=== PATIENT | male | born 1955 | race Caucasian/White ===

== ENCOUNTER → 2023-08-04 13:58 | Outpatient (REF) | payer MEDICARE, BC, SELFPAY ==
[2023-08-04 15:38] LABS: PSA, Total - Diagnostic 2.36 ng/ml (0.0-4.0)
== END ==
LOC: REG 13:58
PROVIDERS: ATTENDING PHYSICIAN Urology; FAMILY PHYSICIAN Family Medicine
DX: C61 Malignant neoplasm of prostate (principal)
CPT/HCPCS: 36415; 84153

== ENCOUNTER → 2024-01-18 07:01 | Outpatient (REF) | payer MEDICARE, BC, SELFPAY ==
[2024-01-18 09:37] LABS: PSA, Total - Diagnostic 2.69 ng/ml (0.0-4.0)
== END ==
LOC: REG 07:01
PROVIDERS: ATTENDING PHYSICIAN Physician Assistant; FAMILY PHYSICIAN Family Medicine
DX: C61 Malignant neoplasm of prostate (principal)
CPT/HCPCS: 36415; 84153

== ENCOUNTER → 2024-07-20 07:30 | Outpatient (REF) | payer MEDICARE, BC, SELFPAY ==
[2024-07-20 09:12] LABS: PSA, Total - Diagnostic 2.67 ng/ml (0.0-4.0)
== END ==
LOC: REG 07:30
PROVIDERS: ATTENDING PHYSICIAN Urology; FAMILY PHYSICIAN Family Medicine
DX: C61 Malignant neoplasm of prostate (principal)
CPT/HCPCS: 36415; 84153

== ENCOUNTER → 2024-07-23 09:43 | Outpatient (REF) | payer MEDICARE, BC, SELFPAY ==
[2024-07-23 11:41] LABS: % Basophils 0.6 % (0-2); % Eosinophils 3.1 % (0-6); % Immature Granulocytes 0.2 % (0-0.5); % Lymphocytes 37.7 % (20.5-51.1); % Monocytes 13.7 % (1.7-9.3); % Neutrophils 44.7 % (42.2-75.2); Absolute Eosinophils 0.2 10^3/uL (0-0.7); Absolute Lymphocytes 1.9 10^3/uL (1.2-3.4); Absolute Monocytes 0.7 10^3/uL (0.1-0.6); Absolute Neutrophils 2.3 10^3/uL (1.4-6.5); Hematocrit 43.6 % (39.0-52.0); Hemoglobin 14.6 g/dL (13.0-18.0); Mean Corp Hgb Conc. 33.5 g/dL (33.0-37.0); Mean Corpuscular Hgb 31.7 pg (27.0-31.0); Mean Corpuscular Volume 94.8 fL (80.0-94.0); Mean Platelet Volume 10.3 fL (7.4-10.4); Nucleated Red Blood Cells % 0 % (-); Platelet Count 173 10^3/uL (130-400); Red Cell Dist. Width 14.3 % (11.5-14.5); White Blood Cell Count 5.1 10^3/uL (4.8-10.8)
[2024-07-23 14:03] LABS: ALT (SGPT) 24 U/L (0-50); AST (SGOT) 20 U/L (17-59); Albumin 4.5 g/dl (3.5-5.0); Alkaline Phosphatase 56 U/L (38-126); Blood Urea Nitrogen 21 mg/dl (9-20); Calcium 9.5 mg/dl (8.4-10.2); Carbon Dioxide 24 mmol/L (22-30); Chloride 107 mmol/L (98-107); Glucose 108 mg/dl (70-99); HDL Cholesterol 55 mg/dl; LDL Cholesterol, Calculated 70 mg/dl; Sodium 142 mmol/L (135-145); Total Bilirubin 0.5 mg/dl (0.2-1.3); Total Cholesterol 148 mg/dl (50-199); Total Protein 6.9 g/dl (6.3-8.2); Triglyceride 118 mg/dl (10-149); Very Low Density Lipoprotein 23 mg/dl (0-30); eGFR > 60.00
== END ==
LOC: HWLAB 09:43
PROVIDERS: ATTENDING PHYSICIAN Family Medicine
DX: I10 Essential (primary) hypertension (principal); G47.33 Obstructive sleep apnea (adult) (pediatric); K21.9 Gastro-esophageal reflux disease without esophagitis; R03.0 Elevated blood-pressure reading, without diagnosis of hypertension; C61 Malignant neoplasm of prostate; E66.09 Other obesity due to excess calories; Z00.00 Encounter for general adult medical examination without abnormal findings
CPT/HCPCS: 36415; 80053; 80061; 85025

== ENCOUNTER 2024-12-23 23:25 | Emergency (ER) | payer MEDICARE, BC, SELFPAY ==
[2024-12-23 23:29] VITALS: BP 220/106
[2024-12-23 23:52] VITALS: BMI 34.6
[2024-12-23 23:54] VITALS: BP 196/106
[2024-12-24] MEDS: NSS 500 IV (00:13)
--- NOTE | 2024-12-24 00:17 | ED.GENMED ---
History of Present Illness
General
Chief Complaint: Back Pain
Source: patient and spouse
Exam Limitations: none
Time Seen by Provider: 12/23/24 23:54
History of Present Illness
History of Present Illness:
69-year-old male complaining of right upper back pain. Has been there for over a week. Does wax and wane some but does not typically go away at all. Has been there all day today. This evening it was worse when lying in certain position. Also
worse with twisting and turning. No true pleuritic pain. No shortness of breath. No chest pain.
Past History
Past History
ED Past Medical History: Cancer (Prostate) and HTN
ED Past Surgical History: Appendectomy and Orthopedic
Phy Exam
Physical Exam
Physical Exam:
GENERAL: Alert and oriented in no apparent distress
EYE: Orbits normal.
NECK: Supple
CARDIAC: Regular rate and rhythm without any obvious murmurs.
LUNGS: Clear breath sounds,normal. Some tenderness over the right medial scapular area. No spinal tenderness. No erythema no warmth no fluctuance
ABDOMEN: Soft, without focal tenderness or distention
NEUROLOGICAL: Alert and oriented , grossly non-focal
SKIN: Warm and dry, no rash or lesion, no discoloration, skin intact.
MUSCULOSKELETAL: No edema,no deformity.Good color
PSYCH: Normal and appropriate interaction.
Course
Orders/Labs/Results
Orders:
Orders
12/23/24 23:50
EKG [Electrocardiogram (*1)] Urgent
Reason for Study: Hypertension, Benign
12/23/24 23:51
EKG- Treatment ONCE
12/23/24 23:54
Cardiac Monitoring- Treatment ONCE
IV Insert/Care/Rem.- Treatment PRN
Complete Blood Count/With Diff Urgent
Comprehensive Metabolic Panel Urgent
Lipase Urgent
Troponin I Urgent
0.9% Sodium Chloride 500 ml [Nss] 500 ml IV BOLUS
Pulse Ox/cont/shift [RESP] Stat
Quantity: 1
12/24/24 00:00
CT Chest Angio W/wo Iv Contras Urgent
Reason For Exam: Pain between the shoulder blades
12/24/24 01:07
Cyclobenzaprine HCl [Flexeril] 10 mg PO NOW STA
Abnormal Lab Results
12/24/24
00:05
RBC 4.33 L 10^6/uL
(4.70-6.10)
MCV 95.6 H fL
(80.0-94.0)
MCH 32.6 H pg
(27.0-31.0)
MPV 10.6 H fL
(7.4-10.4)
Abs Immat Gran (auto) 0.1 H 10^3/uL
(0-0.05)
Absolute Monos (auto) 0.8 H 10^3/uL
(0.1-0.6)
Immature Gran % 0.8 H %
(0-0.5)
Neutrophils % 41.9 L %
(42.2-75.2)
Monocytes % 12.8 H %
(1.7-9.3)
Chloride 109 H mmol/L
(98-107)
BUN 26 H mg/dl
(9-20)
Glucose 119 H mg/dl
(70-99)
12/24/24 00:05
12/24/24 00:05
Vital Signs
Initial and Last Documented VS:
Initial Vital Signs
Temp Pulse Resp BP Pulse Ox
97.8 F 76 20 220/106 98
12/23/24 23:29 12/23/24 23:29 12/23/24 23:29 12/23/24 23:29 12/23/24 23:29
Last Documented Vital Signs
Temp Pulse Resp BP Pulse Ox
97.8 F 81 19 157/84 97
12/23/24 23:29 12/24/24 01:00 12/24/24 01:00 12/24/24 01:00 12/24/24 01:00
MDM/Problems Addressed
Differential Diagnosis Includes:
69-year-old male with ongoing positional right upper scapular pain. Doubt primary cardiac issue. Has been continuous. Not exertional. Atypical cardiac. EKG normal. Will check troponin. No reason to repeat troponin given chronicity of
symptoms. Doubt pulmonary emboli. Nonpleuritic no breath. Dissection is unlikely but with none traumatic pain in the scapular area warrants CT scan. Doubt gallbladder. He has no right upper quadrant tenderness no rebound or guarding no mass or
hernia. Symptom complex is most consistent with musculoskeletal symptoms however workup in progress
*Radiology
Radiology exam reviewed: radiology read reviewed (No acute findings. No dissection. No central pulmonary emboli. Calcified coronary arteries)
*Pulse Oximetry
SaO2: 97
Oxygen Mode of Delivery: Room air
Patient hypoxic: no
*EKG
Interpreted by ED Provider?: Yes
Interpretation: normal
Comparison EKG: changes noted
Heart Rate: 69
Rate: normal
Rhythm: sinus
[place]: normal axis
Interval: normal interval
QRS Pattern: normal QRS
Ischemia: no ischemia
*Critical Care Note
Total Time (30-74mins, 75-104mins- exclusive of procedures): Not Applicable
Update Note
Update Note:
Patient is remained stable. Symptoms relatively minimal at this time. The symptoms are very positional. In fact the patient stated lying still in bed he is very comfortable but when he twists or turns it is worse. Again the symptoms have been
ongoing for a week. Very continuous. Feel repeat cardiac testing not warranted. He does have calcified coronary arteries on his CT which she will be made aware of for follow-up.
ED Attending Note
-
Portions of this chart may have been created with voice recognition software.� Occasional wrong word or��sound alike� substitutions may have occurred due to the inherent limitations of voice recognition software.
Discharge Plan
Departure
Patient Disposition: Home (Routine Discharge)
Date of Disposition: 12/24/24
Time of Disposition: 01:24
Patient with high blood pressure during this ER visit?: Yes
Discharge Problem:
Upper back pain
Instructions: Upper Back Pain (DC), Chest Pain DCA Follow Up, BLOOD PRESSURE
Prescriptions:
New
cyclobenzaprine 10 mg tablet
10 mg PO TID PRN (Reason: muscle spasm) Qty: 14 0RF
Referrals:
UNKNOWN - PT DOES,NOT KNOW [Family Provider]
Activity Restrictions/Additional Instructions:
Continue the Advil or Motrin. You can also add Tylenol
If the muscle relaxer helps you can try that.
You should get a call from cardiology for close follow-up
Interventions
Interventions:
*Risk Screen - Suicide Last Done: 12/23/24 23:29
*General Assessment Last Done: 12/24/24 00:07
*Neglect/Abuse Screening Last Done: 12/23/24 23:29
*ED- Fall Risk Assessment Last Done: 12/24/24 00:07
*ED COVID-19 Vaccine History Last Done: 12/24/24 00:07
ED- Cardiac Assessment Last Done: 12/24/24 00:08
ED-Musculoskeletal Assessment Last Done: 12/24/24 00:08
ED- Neurological Assessment Last Done: 12/24/24 00:08
ED- Pulmonary Assessment Last Done: 12/24/24 00:08
Discharge Date and Time
Print Language: HUNGARIAN
[2024-12-24 00:31] LABS: ALT (SGPT) 24 U/L (0-50); AST (SGOT) 20 U/L (17-59); Albumin 4.4 g/dl (3.5-5.0); Alkaline Phosphatase 45 U/L (38-126); Blood Urea Nitrogen 26 mg/dl (9-20); Calcium 9.5 mg/dl (8.4-10.2); Carbon Dioxide 24 mmol/L (22-30); Chloride 109 mmol/L (98-107); Estimated Creatinine Clearance 88 ml/min; Glucose 119 mg/dl (70-99); Lipase 105 U/L (23-300); Potassium 4.6 mmol/L (3.5-5.1); Sodium 142 mmol/L (135-145); Total Protein 7.0 g/dl (6.3-8.2); eGFR > 60.00
[2024-12-24 00:41] LABS: Hematocrit 41.4 % (39.0-52.0); Hemoglobin 14.1 g/dL (13.0-18.0); Mean Corp Hgb Conc. 34.1 g/dL (33.0-37.0); Mean Corpuscular Volume 95.6 fL (80.0-94.0); Nucleated Red Blood Cells % 0 % (-); Platelet Count 194 10^3/uL (130-400); Red Cell Dist. Width 14.1 % (11.5-14.5)
[2024-12-24 00:48] LABS: Troponin I < 0.012 ng/ml
[2024-12-24 01:00] VITALS: BP 157/84
[2024-12-24] MEDS: FLEXERIL 10 MG PO (01:14)
== END 2024-12-24 01:44 | disposition home or self-care (01) ==
LOC: EMR 23:25
PROVIDERS: EMERGENCY PHYSICIAN Emergency Medicine; FAMILY PHYSICIAN Family Medicine
DX: M54.6 Pain in thoracic spine (principal); I10 Essential (primary) hypertension; Z85.46 Personal history of malignant neoplasm of prostate
CPT/HCPCS: 99285; 96360; 96361; 71275; 80053; 83690; 84484; 85025; 93005; Q9967

== ENCOUNTER → 2024-12-29 07:43 | Outpatient (REF) | payer MEDICARE, BC, SELFPAY ==
[2024-12-29 09:34] LABS: Blood Urea Nitrogen 18 mg/dl (9-20); Calcium 9.4 mg/dl (8.4-10.2); Carbon Dioxide 25 mmol/L (22-30); Chloride 107 mmol/L (98-107); Glucose 103 mg/dl (70-99); Potassium 4.7 mmol/L (3.5-5.1); Sodium 140 mmol/L (135-145); eGFR > 60.00
[2024-12-29 09:43] LABS: PSA, Total - Diagnostic 2.34 ng/ml (0.0-4.0)
[2024-12-29 10:22] LABS: Glycohemoglobin (HgbA1c) 5.8 % (4.0-5.6)
== END ==
LOC: REG 07:43
PROVIDERS: ATTENDING PHYSICIAN Internal Medicine Cardiovascular Disease; FAMILY PHYSICIAN Family Medicine; OTHER PHYSICIAN Physician Assistant Medical
DX: R73.9 Hyperglycemia, unspecified (principal); I10 Essential (primary) hypertension; C61 Malignant neoplasm of prostate
CPT/HCPCS: 36415; 80048; 83036; 84153

== ENCOUNTER → 2025-01-23 08:13 | Outpatient (REF) | payer MEDICARE, BC, SELFPAY | LOC: RCS 08:13 | PROVIDERS: ATTENDING PHYSICIAN Internal Medicine Cardiovascular Disease; FAMILY PHYSICIAN Family Medicine | DX: I10 Essential (primary) hypertension (principal) | CPT/HCPCS: 93306 ==